=== PATIENT | male | born 1960 | race Caucasian/White ===

== ENCOUNTER 2018-05-07 18:57 | Inpatient (IN) | payer SELFPAY ==
[~2018-05-07] VITALS: Ht 172.7 cm; Wt 83.9 kg
[~2018-05-07 18:57] MED LIST: ATOR40TA PO; BENA20TA11 PO; HYDR12.51 PO; LEVO0.1331 PO; NOVN SUBQ; [UNRECOGNIZED DRUG - CODE] MC
[2018-05-07 19:00] VITALS: BP 176/53
--- NOTE | 2018-05-07 19:00 | NUR ---
PT TAKEN TO BED 9
[2018-05-07] MEDS ORDERED: ASPIRIN 325 MG TAB PO ONE (19:15)
[2018-05-07] MEDS ORDERED: NITROGLYCERIN 0.4 MG TAB SL ONE (19:15)
--- NOTE | 2018-05-07 19:23 | NUR ---
Dr. Cope evaluating patient at bedside.
--- NOTE | 2018-05-07 19:30 | NUR ---
Note undone in EDM - 05/07/18 at 1937 by [email or web address] PT BIB SISTER C/O CHEST PAIN. PT STATES SUDDEN ONSET OF CP SINCE 0600 TODAY. DENIES N/V/D; SKIN IS PINK/WARM/DRY; AAOX4 WITH EVEN AND STEADY GAIT; LUNGS CLEAR BL; HR EVEN AND REGULAR; PT DENIES ANY FEVER, CP, SOB, OR COUGH AT THIS TIME; VSS; PATIENT POSITIONED FOR COMFORT; HOB ELEVATED; BEDRAILS UP X1; BED DOWN. ER MD MADE AWARE OF PT STATUS. PMH: THYROID, DM, HTN RX: SEE LIST
--- NOTE | 2018-05-07 19:30 | NUR ---
PT BIB SISTER C/O CHEST PAIN. PT STATES SUDDEN ONSET OF CP SINCE 0600 TODAY. DENIES N/V/D; SKIN IS PINK/WARM/DRY; AAOX4 WITH EVEN AND STEADY GAIT; LUNGS CLEAR BL; HR EVEN AND REGULAR; PT DENIES ANY FEVER, SOB, OR COUGH AT THIS TIME; VSS; PATIENT POSITIONED FOR COMFORT; HOB ELEVATED; BEDRAILS UP X1; BED DOWN. ER MD MADE AWARE OF PT STATUS. PMH: THYROID, DM, HTN RX: SEE LIST
--- NOTE | 2018-05-07 19:32 | NUR ---
X-RAY AT BEDSIDE.
[2018-05-07 19:54] LABS: ANION GAP 9.1 (8-16); CARBON DIOXIDE 29.9 mmol/L (21-32)
[2018-05-07 19:55] LABS: BASOPHILS % (AUTO) 0.3 % (0.0-2.0); EOSINOPHILS % (AUTO) 0.1 % (0.0-4.0); HEMATOCRIT 43.3 % (36-52); HEMOGLOBIN 14.5 g/dL (12.0-18.0); LYMPHOCYTES # (AUTO) 0.9 K/uL (2.0-11.5); LYMPHOCYTES % (AUTO) 9.5 % (20.5-51.1); MEAN CORPUSCULAR HEMOGLOBIN 32 pg (27-31); MEAN CORPUSCULAR HGB CONC 34 g/dL (33-37); MEAN CORPUSCULAR VOLUME 96.1 fL (80-94); MONOCYTES # (AUTO) 0.6 K/uL (0.8-1.0); NEUTROPHILS # (AUTO) 7.8 K/uL (1.8-7.7); NEUTROPHILS % (AUTO) 84.1 % (42.2-75.2); PLATELET COUNT (AUTO) 117 K/uL (140-450); RED BLOOD CELL COUNT(AUTO) 4.51 MIL/uL (4.20-6.10); RED CELL DISTRIBUTION WIDTH 13.9 % (11.6-13.7); WHITE BLOOD COUNT (AUTO) 9.2 K/uL (4.8-10.8)
[2018-05-07 20:01] LABS: ALBUMIN 3.8 g/dL (3.4-5.0); TOTAL BILIRUBIN 1.2 mg/dL (0.0-1.0)
[2018-05-07] MEDS ORDERED: ASPI-1718 PO (20:14)
[2018-05-07] MEDS ORDERED: METF1000 PO (20:14)
[2018-05-07] MEDS ORDERED: ZOLPIDEM 5 MG TAB PO PRN (20:45)
[2018-05-07] MEDS ORDERED: HYDROcodone/APAP 7.5/325 MG 1 TAB PO PRN (20:45)
[2018-05-07] MEDS ORDERED: ACETAMINOPHEN 325 MG TAB PO PRN (20:45)
[2018-05-07] MEDS ORDERED: DEXTROSE 50% 50 ML SYR IVP PRN (20:45)
[2018-05-07] MEDS ORDERED: ONDANSETRON 4 MG/2 ML VIAL IVP PRN (20:45)
--- NOTE | 2018-05-07 21:20 | NUR ---
RECEIVED REPORT FROM BIAS CUTTERCAN PAREKH FOR CONTINUITY OF CARE. PT A/OX4 ON ROOM AIR, MONGOLIAN SPEAKING. PT AMBULATES WITH STEADY GAIT. SKIN IS INTACT. PT HAS A 22G IV TO LEFT HAND, ASYMPTOMATIC AND INTACT. BP SLIGHTLY ELEVATED AT 164/91 BUT PT RECEIVED NITRO IN ER, WILL REASSESS BP AGAIN IN ONE HOUR, OTHER VITAL SIGNS WITHIN NORMAL LIMITS. PT STABLE, DENIES HAVING ANY PAIN, NO SIGNS OF DISTRESS NOTED AT THIS TIME. PT POSITIONED FOR COMFORT. BED IN LOWEST POSITION, BED ALARM ON. WILL CONTINUE TO MONITOR.
--- NOTE | 2018-05-07 21:20 | NUR ---
Patient will be admitted to care of Dr. Guidry. Admited to Tele via gurney by RN and Erasmo EMT; VSS; AAOx4. Will go to room 119-B. Belongings list completed. Report to Romelia NORTH.
[2018-05-07 21:26] LABS: BARBITURATE, URINE NEG. ng/ml (NEG <=200); BENZODIAZEPINE, URINE NEG. ng/mL (NEG <=200); CANNABINOID, URINE NEG. ng/mL (NEG <=50); COCAINE, URINE NEG. ng/mL (NEG <=300); OPIATE, URINE NEG. ng/mL (NEG <=2000); PHENCYCLIDINE SCREEN,URINE NEG. ng/mL (NEG <=25)
[2018-05-07 21:30] LABS: FREE T4 (FREE THYROXINE) 0.29 ng/dL (0.76-1.46); MAGNESIUM 1.7 mg/dL (1.8-2.4); THYROID STIMULATING HORMONE 67.83 uIU/mL (0.34-3.74)
[2018-05-07 21:41] LABS: PROTHROMBIN TIME 11.2 secs (10.8-13.4)
[2018-05-07] MEDS: NACL 0.9% 1,000 ML IV SCH (22:00)
[2018-05-07] MEDS: BLOOD GLUCOSE MONITORING 1 DEV DEV FS SCH (22:00)
[2018-05-07] MEDS: DOCUSATE SODIUM 100 MG GELCAP PO SCH (22:21)
[2018-05-07] MEDS: INSULIN LISPRO SLIDING SCALE 100 UNITS/ML VIAL SUBQ PRN (22:23)
[2018-05-07 23:00] VITALS: BP 153/86
--- NOTE | 2018-05-07 23:00 | NUR ---
PT STILL DECREASING NOW AT 153/86.
--- NOTE | 2018-05-08 | NUR ---
VITAL SIGNS WITHIN NORMAL LIMITS. PT STABLE, DENIES HAVING ANY PAIN, NO SIGNS OF DISTRESS NOTED AT THIS TIME. PT POSITIONED FOR COMFORT. BED IN LOWEST POSITION, BED ALARM ON. WILL CONTINUE TO MONITOR.
[2018-05-08] MEDS ORDERED: PNEUMOCOCCAL VACCINE 23 MCG/0.5 ML VIAL IMVAC SCH (00:20)
[2018-05-08] MEDS ORDERED: NITROGLYCERIN 0.4 MG TAB SL PRN (01:35)
[2018-05-08] MEDS ORDERED: MAG SULF 2000 MG/WATER PREMIX 50 ML IV SCH ×2 (01:35→05:25)
--- NOTE | 2018-05-08 02:12 | NUR ---
SPOKE TO PT REGARDING CURRENT MEDICATIONS HE TAKES. PT STATES HE DOES NOT TAKE BP MEDICATION REGULARLY BECAUSE HE DOES NOT CHECK HIS BLOOD PRESSURE AND DOES NOT WANT IT TO DROP TOO LOW. RELAYED INFORMATION I OBTAINED FROM PT TO DR MENDEZ. =
[2018-05-08 04:00] VITALS: BP 132/76
[2018-05-08] MEDS: BLOOD GLUCOSE MONITORING 1 DEV DEV FS SCH ×4 (06:40→21:09)
--- NOTE | 2018-05-08 07:09 | NUR ---
ENDORSED PT TO DAY SHIFT CAN SAAVEDRA FOR CONTINUITY OF CARE AT PT BEDSIDE. PT IN STABLE CONDITION.
[2018-05-08 07:13] LABS: BASOPHILS # (AUTO) 0.1 K/uL (0.00-0.22); BASOPHILS % (AUTO) 0.8 % (0.0-2.0); EOSINOPHILS # (AUTO) 0.1 K/uL (0-0.4); EOSINOPHILS % (AUTO) 0.7 % (0.0-4.0); HEMATOCRIT 42.4 % (36-52); HEMOGLOBIN 14.4 g/dL (12.0-18.0); LYMPHOCYTES # (AUTO) 1.8 K/uL (2.0-11.5); LYMPHOCYTES % (AUTO) 23.9 % (20.5-51.1); MEAN CORPUSCULAR HEMOGLOBIN 33 pg (27-31); MEAN CORPUSCULAR HGB CONC 34 g/dL (33-37); MEAN CORPUSCULAR VOLUME 95.9 fL (80-94); MONOCYTES # (AUTO) 0.5 K/uL (0.8-1.0); MONOCYTES % (AUTO) 7.1 % (1.7-9.3); NEUTROPHILS % (AUTO) 67.5 % (42.2-75.2); PLATELET COUNT (AUTO) 111 K/uL (140-450); RED BLOOD CELL COUNT(AUTO) 4.42 MIL/uL (4.20-6.10); RED CELL DISTRIBUTION WIDTH 13.7 % (11.6-13.7); WHITE BLOOD COUNT (AUTO) 7.5 K/uL (4.8-10.8)
--- NOTE | 2018-05-08 07:21 | NUR ---
RECEIVED BEDSIDE REPORT FROM NIGHT SIFT NURSE. PT IS LAYING IN BED RESTING. PT STABLE, DENIES HAVING ANY PAIN, NO SIGNS OF DISTRESS NOTED AT THIS TIME. PT POSITIONED SELF FOR COMFORT. BED IN LOWEST POSITION, CALL LIGHT WITHIN REACH. WILL CONTINUE TO MONITOR.
--- NOTE | 2018-05-08 07:21 | NUR ---
ENDORSED PT TO DAY SHIFT RN HUDSON FOR CONTINUITY OF CARE AT PT BEDSIDE. PT IN STABLE CONDITION.
[2018-05-08 07:22] LABS: ANION GAP 4.6 (8-16); CARBON DIOXIDE 33.2 mmol/L (21-32); POTASSIUM 3.8 mmol/L (3.5-5.1)
[2018-05-08 07:33] LABS: CHOL/HDL RATIO 1.9 (1-4.5); MAGNESIUM 1.8 mg/dL (1.8-2.4); PHOSPHORUS 3.4 mg/dL (2.5-4.9)
[2018-05-08 08:00] VITALS: BP 145/82
[2018-05-08] MEDS: metFORMIN 500 MG TAB PO SCH ×2 (08:12→21:09)
[2018-05-08] MEDS: PANTOPRAZOLE 40 MG INJ VIAL IVP SCH (08:12)
[2018-05-08] MEDS: METOPROLOL 25 MG TAB PO SCH ×2 (08:14→21:00)
[2018-05-08] MEDS: DOCUSATE SODIUM 100 MG GELCAP PO SCH ×2 (08:14→21:09)
[2018-05-08] MEDS: ASPIRIN 81 MG TAB.CHEW PO SCH (08:15)
[2018-05-08] MEDS: LEVOTHYROXINE 0.112 MG, LEVOTHYROXINE 0.025 MG PO SCH ×2 (08:15)
[2018-05-08] MEDS: INSULIN NPH HUMAN ISOPHANE 100 UNIT/ML VIAL SUBQ SCH ×2 (08:24→17:43)
--- NOTE | 2018-05-08 08:27 | NUR ---
ADMINISTERED MORNING MEDS TO PT. PT TOLERATED WELL. NO COMPLAINTS OF PAIN OR DISTRESS AT THIS TIME. WILL CONTINUE TO ROUND FREQUENTLY.
--- NOTE | 2018-05-08 08:28 | NUR ---
PATIENT HAS BEEN SCREENED AND CATEGORIZED MODERATE NUTRITION RISK. PATIENT WILL BE SEEN WITHIN 3-5 DAYS OF ADMISSION. 05/10/18[address]
[2018-05-08] MEDS ORDERED: BENAZEPRIL 20 MG TAB PO SCH ×2 (09:00→18:00)
[2018-05-08] MEDS ORDERED: [UNRECOGNIZED DRUG - OTHER] SUBQ SCH (09:00)
[2018-05-08] MEDS: HYDROCHLOROTHIAZIDE 25 MG TAB PO SCH (09:00)
[2018-05-08] MEDS ORDERED: HYDROCHLOROTHIAZIDE PO SCH (09:00)
[2018-05-08] MEDS ORDERED: NON-FORMULARY ITEM (Levothyroxine Sodium* (Synthroid*) 1 TAB) PO SCH (09:00)
--- NOTE | 2018-05-08 10:04 | NUR ---
PT NOTIFIED OF NPO STATUS FOR TESTING LATER TODAY. PT VERBALIZED UNDERSTANDING.
--- NOTE | 2018-05-08 10:24 | NUR ---
PT SLEEPING IN BED. ALL NEEDS MET AT THIS TIME. WILL CONTINUE TO MONITOR PT CLOSELY. BED IN LOW POSITION, CALL LIGHT WITHIN REACH.
[2018-05-08] MEDS: NACL 0.9% 1,000 ML IV SCH (11:02)
[2018-05-08 12:00] VITALS: BP 143/87
--- NOTE | 2018-05-08 13:08 | NUR ---
PT BLOOD SUGAR IS 215. WAS NOTIFIED SINCE PT IS NPO FOR TEST LATER TODAY. PER DR. RODRIGUEZ, SHE SAID TO NOT GIVE THE PT ANY COVERAGE. WILL RECHECK BS FOR DINNER AND GIVE INSULIN COVERAGE NEEDED.
[2018-05-08] MEDS ORDERED: FAMOTIDINE 20 MG TAB PO SCH (13:31)
[2018-05-08 16:00] VITALS: BP 163/89
[2018-05-08 17:56] LABS: ALBUMIN 3.3 g/dL (3.4-5.0); BILIRUBIN,DIRECT 0.5 mg/dL (0.0-0.3); TOTAL BILIRUBIN 1.1 mg/dL (0.0-1.0)
--- NOTE | 2018-05-08 19:40 | NUR ---
ENDORSED PT TO EMBLEM CUTTER FOR CONTINUITY OF CARE. PT IN STABLE CONDITION AT THIS TIME.
--- NOTE | 2018-05-08 19:41 | NUR ---
RECEIVED REPORT FROM CAN SAAVEDRA FOR CONTINUITY OF CARE. PT A/OX4 ON ROOM AIR, MACEDONIAN SPEAKING. PT AMBULATES WITH STEADY GAIT. SKIN IS INTACT. PT HAS A 22G IV TO LEFT HAND, ASYMPTOMATIC AND INTACT. SBP SLIGHTLY ELEVATED AT 146 AND HEART RATE DECREASED AT 55, OTHER VITAL SIGNS WITHIN NORMAL LIMITS. PT STABLE, DENIES HAVING ANY PAIN, NO SIGNS OF DISTRESS NOTED AT THIS TIME. PT POSITIONED FOR COMFORT. BED IN LOWEST POSITION, BED ALARM ON. WILL CONTINUE TO MONITOR.
[2018-05-08 20:00] VITALS: BP 146/83
--- NOTE | 2018-05-08 20:50 | NUR ---
DR CASEY TALKING WITH PT AT BEDSIDE.
[2018-05-08] MEDS: INSULIN LISPRO SLIDING SCALE 100 UNITS/ML VIAL SUBQ PRN (21:14)
--- NOTE | 2018-05-08 21:15 | NUR ---
ADMINISTERED SCHEDULED MEDICATIONS, PT TOLERATED WELL. HELD LOPRESSOR DUE TO SLIGHTLY LOW PULSE (55), MADE DR TRAVIS AWARE. BED IN LOWEST POSITION, CALL LIGHT WITHIN REACH. WILL CONTINUE TO MONITOR.
--- NOTE | 2018-05-08 23:03 | NUR ---
ASKED PT FOR URINE SAMPLE AND HE SAID HE HAD JUST GONE. EXPLAINED TO HIM THAT WE NEEDED TO SEND HIS URINE TO THE LAB TO FOLLOW THROUGH ON THE TESTS/EXAMS HIS DOCTOR ORDERED, IN [place]. ASKED HIM TO CALL ME NEXT TIME HE VOIDED SO THAT I COULD COLLECT SOME FROM THE URINAL.
[2018-05-09] VITALS: BP 126/76
--- NOTE | 2018-05-09 01:15 | NUR ---
CHECKED ON PT AND PT HAD VOIDED AGAIN. I REPEATED TO HIM THAT WE NEED A URINE SAMPLE THAT HAS NOT BEEN SITTING THERE FOR A WHILE AND TO LET ME KNOW NEXT TIME HE NEEDS TO VOID. PT VERBALIZED UNDERSTANDING AGAIN.
--- NOTE | 2018-05-09 02:15 | NUR ---
PT RESTING, STABLE. NO SIGNS OF DISTRESS NOTED AT THIS TIME. PT POSITIONED FOR COMFORT. BED IN LOWEST POSITION, BED ALARM ON. WILL CONTINUE TO MONITOR.
[2018-05-09 04:00] VITALS: BP 135/81
[2018-05-09] MEDS: LEVOTHYROXINE 0.112 MG, LEVOTHYROXINE 0.025 MG PO SCH ×2 (05:58)
[2018-05-09] MEDS: INSULIN NPH HUMAN ISOPHANE 100 UNIT/ML VIAL SUBQ SCH (05:59)
[2018-05-09] MEDS: BLOOD GLUCOSE MONITORING 1 DEV DEV FS SCH ×2 (05:59→11:58)
--- NOTE | 2018-05-09 06:00 | NUR ---
ADMINISTERED SCHEDULED MEDICATIONS, PT TOLERATED WELL. PT BLOOD SUGAR RESULTED IN 25, CHECKED AGAIN AND IT WAS 32. PT ASYMPTOMATIC, GAVE ORANGE JUICE AND APPLE JUICE AND HELD NPH INSULIN.
[2018-05-09 06:22] LABS: BASOPHILS # (AUTO) 0.1 K/uL (0.00-0.22); BASOPHILS % (AUTO) 0.8 % (0.0-2.0); EOSINOPHILS # (AUTO) 0.1 K/uL (0-0.4); EOSINOPHILS % (AUTO) 1.2 % (0.0-4.0); HEMATOCRIT 41.5 % (36-52); HEMOGLOBIN 13.9 g/dL (12.0-18.0); LYMPHOCYTES # (AUTO) 1.9 K/uL (2.0-11.5); LYMPHOCYTES % (AUTO) 26.3 % (20.5-51.1); MEAN CORPUSCULAR HEMOGLOBIN 32 pg (27-31); MEAN CORPUSCULAR HGB CONC 34 g/dL (33-37); MEAN CORPUSCULAR VOLUME 96.7 fL (80-94); MONOCYTES # (AUTO) 0.6 K/uL (0.8-1.0); NEUTROPHILS # (AUTO) 4.7 K/uL (1.8-7.7); NEUTROPHILS % (AUTO) 63.7 % (42.2-75.2); PLATELET COUNT (AUTO) 112 K/uL (140-450); RED BLOOD CELL COUNT(AUTO) 4.29 MIL/uL (4.20-6.10); RED CELL DISTRIBUTION WIDTH 14.1 % (11.6-13.7); WHITE BLOOD COUNT (AUTO) 7.4 K/uL (4.8-10.8)
--- NOTE | 2018-05-09 06:22 | NUR ---
BLOOD SUGAR STILL 38, ADMINISTERED ABBOJECT DEXTROSE INJECTION, PT TOLERATED WELL. WILL REASSESS AGAIN
[2018-05-09 06:24] LABS: ANION GAP 9.2 (8-16); CREATININE 0.9 mg/dL (0.7-1.3); POTASSIUM 3.2 mmol/L (3.5-5.1)
--- NOTE | 2018-05-09 06:29 | NUR ---
PT BLOOD SUGAR NOW 168. NO INSULIN GIVEN.
[2018-05-09 06:43] LABS: MAGNESIUM 1.9 mg/dL (1.8-2.4); PHOSPHORUS 3.3 mg/dL (2.5-4.9)
[2018-05-09 06:44] LABS: ALBUMIN 3.3 g/dL (3.4-5.0); BILIRUBIN,DIRECT 0.4 mg/dL (0.0-0.3)
--- NOTE | 2018-05-09 07:15 | NUR ---
ENDORSED PT TO DAY SHIFT CAN KEITH FOR CONTINUITY OF CARE. PT IN STABLE CONDITION.
--- NOTE | 2018-05-09 07:17 | NUR ---
RECEIVED BEDSIDE REPORT FROM PRODUCT SAFETY AND STANDARDS ENGINEER NURSE. PT IS AOX4. DENIES PAIN AND NO SIGNS OF DISTRESS NOTED. RA. RESPIRATION IS EVEN AND UNLABORED. IV ON L HAND 22G, PATENT AND ASYMPTOMATIC, INFUSING PER MD ORDER. IV SITE IS CLEAN AND DRY. SKIN INTACT, DRY AND CLEAN. ABLE TO AMBULATE WITH STEADY GAIT. URANAL IS ON BEDSIDE. DISCUSSED PLAN OF CARE WITH PATIENT, AND PATIENT VERBALIZED UNDERSTANDING. BED IS IN LOW POSITION, CALL LIGHT WITHIN REACH.
[2018-05-09 08:00] VITALS: BP 133/79
[2018-05-09] MEDS ORDERED: BENAZEPRIL 20 MG TAB PO SCH (09:00)
[2018-05-09] MEDS ORDERED: FAMOTIDINE 20 MG TAB PO SCH (09:00)
[2018-05-09 09:31] LABS: APPEARANCE,URINE CLEAR (CLEAR); BILIRUBIN,URINE NEGATIVE (NEGATIVE); BLOOD, URINE NEGATIVE (NEGATIVE); COLOR,URINE YELLOW (YELLOW); LEUKOCYTE ESTERASE ,URINE NEGATIVE (NEGATIVE); NITRITE, URINE NEGATIVE (NEGATIVE); UGLUCOSE TRACE (NEGATIVE)
[2018-05-09 09:32] LABS: RBC,URINE 0-5 (RARE) /HPF (0-5); WBC,URINE 0-5 (RARE) /HPF (0-5)
[2018-05-09] MEDS: PANTOPRAZOLE 40 MG INJ VIAL IVP SCH (09:36)
[2018-05-09] MEDS: HYDROCHLOROTHIAZIDE 25 MG TAB PO SCH (09:37)
[2018-05-09] MEDS: METOPROLOL 25 MG TAB PO SCH (09:37)
[2018-05-09] MEDS: DOCUSATE SODIUM 100 MG GELCAP PO SCH (09:38)
[2018-05-09] MEDS: metFORMIN 500 MG TAB PO SCH (09:39)
[2018-05-09] MEDS: ASPIRIN 81 MG TAB.CHEW PO SCH (09:40)
--- NOTE | 2018-05-09 09:48 | NUR ---
ADMINISTERED MEDS PER MD ORDER. HELD HEPARIN DUE TO PLATELET IS LOW 112L. PT TOLERATED WELL. NO SIGNS OF DISTRESS NOTED. FAMILY IS AT BEDSIDE.
[2018-05-09] MEDS: NACL 0.9% 1,000 ML IV SCH (11:02)
--- NOTE | 2018-05-09 11:45 | NUR ---
PT IS RESTING ON BED. DENIES PAIN. NO SIGN OF DISTRESS NOTED.
[2018-05-09] MEDS: INSULIN LISPRO SLIDING SCALE 100 UNITS/ML VIAL SUBQ PRN (11:56)
[2018-05-09 12:00] VITALS: BP 151/90
--- NOTE | 2018-05-09 12:25 | NUR ---
PT'S DOMINGA CALLED AND ASKED WHEN PT WILL BE DISCHARGED. INFORMED PT'S THAT PT WILL NEED TO TAKE POTASSIUM PER MD ORDER AND CHECK LAB AFTERWARD TO ENSURE THE POTASSIUM IS WITHIN NORMAL LIMIT.
[2018-05-09] MEDS ORDERED: POTASSIUM CHLORIDE 10 MEQ TABER PO SCH (14:00)
--- NOTE | 2018-05-09 14:10 | NUR ---
ADMINISTERED MED PER MD ORDER. EXPLAINED TO PT THAT HIS POTASSIUM LEVEL IS LOW.
[2018-05-09] MEDS ORDERED: BENA20TA88 PO (14:42)
[2018-05-09] MEDS ORDERED: FAMO20TA13 PO (14:42)
--- NOTE | 2018-05-09 15:20 | NUR ---
PT HAS SIGNED THE DISCHARGE DOCUMENTS. WAITING TO FOR FAMILY TO ARRIVAL.
--- NOTE | 2018-05-09 15:30 | NUR ---
PT HAS CHANGED INTO HIS OWN CLOTHES AND WAITING FOR FAMILY ARRIVAL.
--- NOTE | 2018-05-09 15:45 | NUR ---
DISCHARGE INSTRUCTION AND EDUCATION MATERIALS PROVIDED TO PATIENT IN PREFERRED LANGUAGE IVORIAN. EDUCATED PATIENT ON DISEASE MANAGEMENT EDUCATION, SIGN AND SYMPTOMS, MEDICATIONS REGIMENS, SIDE EFFECTS, FOLLOW UP WITH MD, AND DIET REGIMENS. PRESCRIPTIONS GIVEN TO PATIENT. ANSWERED ALL PT AND FAMILY QUESTIONS. D/C IV, IV CANNULA INTACT, NO BLEEDING AT IV INSERTED SITE. REMOVED ALL ARMBANDS. PT BROUGHT ALL HIS BELONGINGS. ESCORTED PT AND FAMILY TO THE LOBBY. PT IS IN STABLE CONDITION. PT IS DISCHARGED AT THIS TIME.
== END 2018-05-09 15:45 | disposition home or self-care (01) | DRG 392 ==
LOC: MED 18:57 → MTU 20:55
PROVIDERS: ADMIT General Practice; ATTEND General Practice
DX: K21.9 Gastro-esophageal reflux disease without esophagitis (principal); E87.1 Hypo-osmolality and hyponatremia; E44.1 Mild protein-calorie malnutrition; E11.9 Type 2 diabetes mellitus without complications; I10 Essential (primary) hypertension; E03.9 Hypothyroidism, unspecified; E78.5 Hyperlipidemia, unspecified; F17.210 Nicotine dependence, cigarettes, uncomplicated; E83.42 Hypomagnesemia; K76.0 Fatty (change of) liver, not elsewhere classified; E87.6 Hypokalemia; N20.0 Calculus of kidney; Z79.82 Long term (current) use of aspirin; Z79.84 Long term (current) use of oral hypoglycemic drugs; Z79.4 Long term (current) use of insulin; Z79.899 Other long term (current) drug therapy; Z82.49 Family history of ischemic heart disease and other diseases of the circulatory system; Z83.3 Family history of diabetes mellitus; Z68.28 Body mass index [BMI] 28.0-28.9, adult
CPT/HCPCS: 36415; 71045; 76700; 80048; 80053; 80076; 80305; 81001; 82150; 82550; 82553; 82948; 83036; 83690; 83735; 83880; 84100; 84439; 84443; 84484; 85025; 85610; 85730; 87081; 93005; 99285; C9113; J1644; J1815; J3475; J7030; Q0092

== ENCOUNTER 2020-03-19 17:24 | Inpatient (IN) | payer OTHER, SELFPAY ==
[~2020-03-19] VITALS: Ht 170.2 cm; Wt 62.6 kg
[~2020-03-19 17:24] MED LIST changes: +ASPI-1822 PO; -BENA20TA11 PO; +BENA20TA88 PO; +FAMO20TA13 PO; +METF1000 PO
[2020-03-19 17:46] VITALS: BP 116/70
--- NOTE | 2020-03-19 19:02 | NUR ---
Patient being evaluated by physician at TRIAGE ROOM.
[2020-03-19 20:21] LABS: BASOPHILS # (AUTO) 0.2 K/uL (0.00-0.22); BASOPHILS % (AUTO) 1.7 % (0.0-2.0); HEMATOCRIT 45.9 % (36-52); HEMOGLOBIN 15.2 g/dL (12.0-18.0); LYMPHOCYTES # (AUTO) 0.7 K/uL (2.0-11.5); LYMPHOCYTES % (AUTO) 6.5 % (20.5-51.1); MEAN CORPUSCULAR HEMOGLOBIN 35 pg (27-31); MEAN CORPUSCULAR HGB CONC 33 g/dL (33-37); MEAN CORPUSCULAR VOLUME 104.7 fL (80-94); MONOCYTES # (AUTO) 0.2 K/uL (0.8-1.0); MONOCYTES % (AUTO) 2.1 % (1.7-9.3); NEUTROPHILS % (AUTO) 89.7 % (42.2-75.2); PLATELET COUNT (AUTO) 266 K/uL (140-450); RED BLOOD CELL COUNT(AUTO) 4.39 MIL/uL (4.20-6.10); RED CELL DISTRIBUTION WIDTH 14.7 % (11.6-13.7); WHITE BLOOD COUNT (AUTO) 11.1 K/uL (4.8-10.8)
[2020-03-19 20:45] LABS: ALBUMIN 4.8 g/dL (3.4-5.0); ANION GAP 29.9 (8-16); CARBON DIOXIDE 15.1 mmol/L (21-32); CREATININE 1.6 mg/dL (0.6-1.3); TOTAL BILIRUBIN 1.1 mg/dL (0.0-1.0)
[2020-03-19] MEDS ORDERED: LACTATED RINGERS 1,000 ML IV ONE ×2 (21:55→22:25)
[2020-03-19] MEDS ORDERED: DEXTROSE 50% 50 ML SYR IVP PRN (21:55)
[2020-03-19] MEDS: BLOOD GLUCOSE MONITORING 1 DEV DEV FS SCH ×3 (21:55→23:55)
--- NOTE | 2020-03-19 22:18 | NUR ---
VENOUS BLOOD GAS COLLECTED AND GIVEN TO RT.
--- NOTE | 2020-03-19 22:28 | NUR ---
PT AMBULATED TO [facility]
[2020-03-19] MEDS ORDERED: INSULIN REGULAR, HUMAN 100 UNIT in NACL 0.9% 100 ML IV ONE ×2 (22:30)
--- NOTE | 2020-03-19 22:36 | NUR ---
PT AMBULATED TO RESTROOM, STEADY GAIT
[2020-03-19] MEDS ORDERED: ONDANSETRON 4 MG/2 ML VIAL IVP SCH (22:45)
--- NOTE | 2020-03-19 23:00 | NUR ---
INSULIN DRIP STARTED AT 6 UNITS/HR
--- NOTE | 2020-03-19 23:00 | NUR ---
BRIAN SWAB COLLECTED AND HANDED TO MOVING VAN DRIVER
[2020-03-19] MEDS ORDERED: CALCIUM GLUCONATE 10% 1000 MG/10 ML VIAL IVP ONE (23:05)
[2020-03-19 23:28] LABS: APPEARANCE,URINE CLEAR (CLEAR); BILIRUBIN,URINE 2+ (NEGATIVE); BLOOD, URINE NEGATIVE (NEGATIVE); COLOR,URINE YELLOW (YELLOW); LEUKOCYTE ESTERASE ,URINE NEGATIVE (NEGATIVE); NITRITE, URINE NEGATIVE (NEGATIVE); PH,URINE 5.5 (5.0-9.0); UGLUCOSE 3+ (NEGATIVE)
[2020-03-19] MEDS: LACTATED RINGERS 1,000 ML IV SCH (23:31)
[2020-03-19] MEDS ORDERED: SODIUM BICARBONATE 8.4% PFS 50 MEQ/50 ML SYR IVP SCH (23:40)
--- NOTE | 2020-03-19 23:52 | NUR ---
PT TAKEN TO CT VIA [facility]
--- NOTE | 2020-03-20 00:10 | NUR ---
PT RETURNED FROM CT VIA [facility]
[2020-03-20] MEDS ORDERED: CALCIUM GLUCONATE 10% 1,000 MG in NACL 0.9% 100 ML IV SCH (00:25)
[2020-03-20] MEDS: LACTATED RINGERS 1,000 ML IV SCH ×2 (00:32→00:33)
[2020-03-20] MEDS ORDERED: CALCIUM GLUCONATE 10% 1000 MG/10 ML VIAL ONE (00:37)
[2020-03-20] MEDS: BLOOD GLUCOSE MONITORING 1 DEV DEV FS SCH ×18 (00:55→20:31)
--- NOTE | 2020-03-20 01:02 | NUR ---
LAB AT BEDSIDE
[2020-03-20] MEDS ORDERED: NACL 0.9% 1,000 ML IV SCH (01:40)
--- NOTE | 2020-03-20 03:36 | NUR ---
PT RESTING IN BED, EYES CLOSED, RESPRIATIONS EVEN AND UNLABORED. CHEST RISE IS SYMMETRICAL. WILL CONTINUE TO MONITOR.
--- NOTE | 2020-03-20 04:23 | NUR ---
MOVED TO ER BED 11
[2020-03-20] MEDS ORDERED: MULTIVITAMIN-12 10 ML, THIAMINE 100 MG, MAGNESIUM SULFATE 50% 2,000 MG, FOLIC ACID 1 MG... IV SCH ×5 (05:00)
[2020-03-20] MEDS ORDERED: DEXTROSE 50% 50 ML SYR IVP PRN ×2 (05:05→10:40)
[2020-03-20] MEDS ORDERED: INSULIN REGULAR, HUMAN 100 UNIT in NACL 0.9% 100 ML IV SCH ×4 (05:05→10:40)
[2020-03-20] MEDS ORDERED: BLOOD GLUCOSE MONITORING 1 DEV DEV FS SCH ×2 (05:05→12:00)
[2020-03-20] MEDS ORDERED: THIAMINE 200 MG/2 ML VIAL ONE (05:12)
[2020-03-20] MEDS ORDERED: FOLIC ACID 5 MG/ML SYR ONE (05:12)
[2020-03-20] MEDS ORDERED: MULTIVITAMIN-12 10 ML VIAL IV ONE (05:13)
[2020-03-20] MEDS ORDERED: MAG SULF 2000 MG/WATER PREMIX 50 ML IV ONE (05:14)
--- NOTE | 2020-03-20 05:55 | NUR ---
BLOOD SUGAR 404, ON INSULIN DRIP, WILL CONTINUE TO MONITOR
[2020-03-20] MEDS ORDERED: ONDANSETRON 4 MG/2 ML VIAL IVP PRN (07:05)
[2020-03-20] MEDS ORDERED: LORazepam 2 MG/ML VIAL IM/IVP PRN (07:05)
[2020-03-20] MEDS ORDERED: ZOLPIDEM 5 MG TAB PO PRN (07:05)
[2020-03-20] MEDS ORDERED: HYDROcodone/APAP 5/325 MG 1 TAB TAB PO PRN (07:05)
[2020-03-20] MEDS ORDERED: DOCUSATE SODIUM 100 MG GELCAP PO PRN (07:05)
[2020-03-20] MEDS ORDERED: ACETAMINOPHEN 325 MG TAB PO PRN (07:05)
[2020-03-20] MEDS ORDERED: MORPHINE SULFATE 2 MG/ML SYR IVP PRN (07:05)
--- NOTE | 2020-03-20 07:12 | NUR ---
REPORT GIVEN TO SILVESTRE NORTH FOR CONTINUITY OF CARE
--- NOTE | 2020-03-20 07:49 | NUR ---
PATIENT HAS BEEN SCREENED AND CATEGORIZED HIGH NUTRITION RISK. PATIENT WILL BE SEEN WITHIN 1-2 DAYS OF ADMISSION. 03/20/20 - 03/21/20 BR[address] ALVAREZ MBA, RD
--- NOTE | 2020-03-20 08:00 | NUR ---
BLOOD SUGAR 368, PT ON INSULIN DRIP, WILL CONTINUE TO MONITOR.
--- NOTE | 2020-03-20 08:21 | NUR ---
Patient will be admitted to care of DR. GONZALES. Admited to ICU. Will go to room 132. Belongings list completed. Report to CAN ARGUETA.
[2020-03-20 08:30] VITALS: BP 142/96
--- NOTE | 2020-03-20 09:31 | NUR ---
SPOKE TO DR GOMEZ REGARDING PT BLOOD SUGAR 398, AND CURRENTLY RUNNING 6 UNITS/HR INSULIN FROM ER, PER DR TO INCREASE RATE TO 8 UNITS/HR, AND MONITOR BLOOD SUGAR.WILL CONTINUE TO MONITOR.
[2020-03-20 10:00] VITALS: BP 134/74
[2020-03-20] MEDS: DEXT 5% / NACL 0.45% 1,000 ML IV SCH ×2 (10:40→16:20)
[2020-03-20] MEDS ORDERED: INSULIN LISPRO SLIDING SCALE 100 UNITS/ML VIAL SUBQ PRN (10:40)
--- NOTE | 2020-03-20 11:14 | NUR ---
PT BLOOD SUGAR UNABLE TO BE READ BY GLUCOCHECK MACHINE, NOTIFIED DR. GOMEZ, PER DR TO GIVE PT IVP 10 UNITS REGULAR INSULIN, WILL PUT IN ORDERS AND CONTINUE WITH ORDERS.
[2020-03-20] MEDS ORDERED: INSULIN REGULAR, HUMAN 100 UNIT/ML VIAL IVP ONE (11:15)
[2020-03-20] MEDS: NACL 0.9% 1,000 ML IV SCH ×2 (11:20→15:40)
[2020-03-20 11:33] LABS: BASOPHILS % (AUTO) 0.3 % (0.0-2.0); EOSINOPHILS % (AUTO) 0.1 % (0.0-4.0); HEMATOCRIT 36.9 % (36-52); HEMOGLOBIN 12.6 g/dL (12.0-18.0); LYMPHOCYTES # (AUTO) 1.3 K/uL (2.0-11.5); LYMPHOCYTES % (AUTO) 13.5 % (20.5-51.1); MEAN CORPUSCULAR HEMOGLOBIN 35 pg (27-31); MEAN CORPUSCULAR HGB CONC 34 g/dL (33-37); MEAN CORPUSCULAR VOLUME 101.9 fL (80-94); MONOCYTES # (AUTO) 0.7 K/uL (0.8-1.0); MONOCYTES % (AUTO) 6.7 % (1.7-9.3); NEUTROPHILS # (AUTO) 7.9 K/uL (1.8-7.7); NEUTROPHILS % (AUTO) 79.4 % (42.2-75.2); PLATELET COUNT (AUTO) 198 K/uL (140-450); RED BLOOD CELL COUNT(AUTO) 3.62 MIL/uL (4.20-6.10); RED CELL DISTRIBUTION WIDTH 14.2 % (11.6-13.7)
[2020-03-20 12:00] VITALS: BP 131/75
--- NOTE | 2020-03-20 12:06 | NUR ---
DIGITAL COMPUTER SYSTEMS ANALYST NOTE: Patient's Orientation Unable To Assess Information Provided By BRENDA MULLIGAN - SISTER Comments SW WAS UNABLE TO MEET PATIENT. SW COMPLETED ASSESSMENT WITH PATIENT'S SISTER. Building Services Supervisor, Realtionship and Phone Number BRENDA FUNG [phone] [facility] Power of Overhead Cleaner No Does Patient Have a POLST No Identifying Problems No Social Work Triggers Is A Social Work Consult Needed No Mandate Report Filed No Explanation Of Identifying Problems PATIENT IS A 59-YEAR-OLD MALE ADMITTED FOR DKA. PATIENT HAS PMHX OF DIABETES, HYPERTENSION, AND HYPOTHYROIDISM. Admitted From Home Pre-Admission Level Of Functioning Status Independent/Ambulatory Prior Resources/Services Used In Last 12 Months No Prior Resources Used Prior DME No Prior DME Used Living Situation Lives With Family House Home Support No Caregiver Issues Financial Issues No Known Financial Issue Factors/Needs No D/C Needs Identified Pt/Rep Participated In Discharge Plan Yes Patient/Family Agress With Discharge Plan Yes Discharge Plan Comments TENTATIVE DISCHARGE PLAN IS FOR PATIENT TO RETURN HOME. DC Plan Status Initiated
[2020-03-20 12:12] LABS: ALBUMIN 3.9 g/dL (3.4-5.0); ANION GAP 10.6 (8-16); CARBON DIOXIDE 28.5 mmol/L (21-32); CREATININE 1.3 mg/dL (0.6-1.3); POTASSIUM 4.1 mmol/L (3.5-5.1)
[2020-03-20 14:00] VITALS: BP 134/72
[2020-03-20] MEDS ORDERED: GLIM1TAB23 PO (14:13)
[2020-03-20 14:18] LABS: FREE T4 (FREE THYROXINE) 1.97 ng/dL (0.76-1.46); MAGNESIUM 2.8 mg/dL (1.8-2.4); THYROID STIMULATING HORMONE 0.4 uIU/mL (0.34-3.74)
[2020-03-20 14:51] LABS: CHOL/HDL RATIO 2.6 (1-4.5)
[2020-03-20 16:43] LABS: ANION GAP 10.6 (8-16); CREATININE 0.6 mg/dL (0.6-1.3)
[2020-03-20 16:45] LABS: POTASSIUM 2.6 mmol/L (3.5-5.1)
--- NOTE | 2020-03-20 16:53 | NUR ---
CALLED DR. YANG PISANO PT POTASSIUM 2.7, PER DR TO GIVE 40MEQ PRN IV POTASSIUM AND TO ORDER PRN IV POTASSIUM TO MAINTAIN PT POTASSIUM LEVEL, WILL PUT IN ORDER AND CONTINUE WITH ORDERS.
--- NOTE | 2020-03-20 16:58 | NUR ---
SPOKE TO DR GOMEZ REGARDING PT ANION GAP HAS BEEN CLOSED X 2, BELOW 12 @ 1200 10.6 AND @ 1600 10.6, PER DR CAMARGO TO DC INSULIN DRIP, TO START PT ON ACHS GLUCOCHEKS AND SLIDING SCALE. WILL PUT IN ORDERS AND CONTINUE WITH ORDERS.
[2020-03-20 18:00] VITALS: BP 138/71
[2020-03-20] MEDS: KCL 20 MEQ/WATER INJ PREMIX 200 ML IV PRN ×2 (18:49→18:57)
--- NOTE | 2020-03-20 19:20 | NUR ---
ENDORSED PT TO MANAGER PROGRAMMING NURSE FOR CONTINUOUS OF CARE.
--- NOTE | 2020-03-20 19:30 | NUR ---
RECEIVED TRANSFER OF CARE AND REPORT FROM DAYSHIFT NURSE, PATIENT ALERT AND ORIENTED X4, TRACKING AND TALKING WHEN WALKING INTO THE ROOM. HOB 30 DEGREES, IN A POSITION OF COMFORT. PATIENT STATED FEELING CONTENT AND NO COMPLAINTS OF PAIN. PATIENT ON CONTINUOUS TELE MONITOR. DRIPS RUNNING INCLUDE POTASSIUM 20 MEQ AND NS. PATIENT CALM AND RESTING. FREQUENT MONITORING AND CHECKS.
[2020-03-20 20:00] VITALS: BP 148/76
[2020-03-20 20:48] LABS: ANION GAP 10.7 (8-16); CARBON DIOXIDE 24.7 mmol/L (21-32); POTASSIUM 4.4 mmol/L (3.5-5.1)
--- NOTE | 2020-03-20 22:20 | NUR ---
REPORT AND PATIENT CARE TRANSFERRED TO NURSEOFE.
--- NOTE | 2020-03-20 23:00 | NUR ---
RECEIVED REPORT OF PT IN STABLE CONDITION.RESP.UNLABORED.LUNGS CLEAR.IVF OF NS INFUSING WELL.TELE IS ON AND SHOWING SR.CALL LIGHT WITHIN REACH.WILL CONT.MONITORING.
[2020-03-20 23:51] LABS: CARBON DIOXIDE 24.9 mmol/L (21-32); CREATININE 0.7 mg/dL (0.6-1.3)
[2020-03-21] VITALS: BP 138/74
[2020-03-21 00:09] LABS: ANION GAP 8.6 (8-16); POTASSIUM 17.5 mmol/L (3.5-5.1)
[2020-03-21] MEDS: NACL 0.9% 1,000 ML IV SCH ×3 (00:30→20:22)
--- NOTE | 2020-03-21 01:43 | NUR ---
PT'S K=17.5.SENT MESSAGE FOR MD.AND ALSO ORDERED ANOTHER BMP STAT ORDER.MD RESPOND AND ORDERED TO REPEAT BMP STAT.I ALREADY DID IT AND WAITING FOR LAB TO COME AND DRAW BLOOD.
[2020-03-21 02:30] LABS: CARBON DIOXIDE 23.8 mmol/L (21-32); CREATININE 0.9 mg/dL (0.6-1.3); POTASSIUM 3.8 mmol/L (3.5-5.1)
--- NOTE | 2020-03-21 02:38 | NUR ---
BMP STAT DONE.K=3.8. INFORMED MD MCNAMARA TEXT.
[2020-03-21 04:00] VITALS: BP 147/78
[2020-03-21] MEDS: BLOOD GLUCOSE MONITORING 1 DEV DEV FS SCH ×4 (04:35→21:00)
--- NOTE | 2020-03-21 04:57 | NUR ---
BS=55.APPLE JUICE AND SUGAR GIVEN WILL RECHECK LATER.HR IS SB.NO IV LINE TRIED 1 TIME WAS NOT SUCCESSFUL .HE REFUSED TO TRY AGAIN.
--- NOTE | 2020-03-21 07:15 | NUR ---
REC'D REPORT FROM NIGHT NURSE ,PT SLEEPING, RA. PER POULTRY HATCHERY MANAGER NURSE DURING HER SHIFT PT DOES NOT HAVE IV ACCESS, PT REFUSED FOR IV ACCESS TO BE PLACED AFTER PREVIOUS LINE WAS REMOVED. PT STABLE
--- NOTE | 2020-03-21 07:16 | NUR ---
AT 0430 BS=55.GAVE HIM APPLE JUICE AND SUGAR.[id number].NO DISTRESS NOTED AT PRESENT TIME.
[2020-03-21 08:00] VITALS: BP 130/65
--- NOTE | 2020-03-21 10:11 | NUR ---
SPOKE TO PT ABOUT PLACING IV ACCESS, REFUSED. INFORMED ABOUT THE IMPORTANCE OF HAVE IV LINE ESTABLISHED FOR EMERGENT SITUATIONS AND NEED FOR QUICK MEDICATION ADMINISTRATION AND FOR ANY IV MEDICATIONS DR. WILL PRESCRIBE IF NEED BE. STATED HE DID NOT WANT IV LINE DONE.
[2020-03-21 12:00] VITALS: BP 152/80
[2020-03-21] MEDS: INSULIN LISPRO SLIDING SCALE 100 UNITS/ML VIAL SUBQ PRN ×3 (14:04→22:56)
--- NOTE | 2020-03-21 14:08 | NUR ---
ADMINISTERED 2UNITS. HUMALOG PER SLIDING SCALE .PT TOLERATED PROCEDURE WELL
[2020-03-21 14:48] LABS: MAGNESIUM 2.3 mg/dL (1.8-2.4); PHOSPHORUS 3.4 mg/dL (2.5-4.9)
[2020-03-21 15:08] LABS: ANION GAP 13.4 (8-16); CARBON DIOXIDE 24.1 mmol/L (21-32); CREATININE 0.8 mg/dL (0.6-1.3); POTASSIUM 3.5 mmol/L (3.5-5.1)
[2020-03-21 16:00] VITALS: BP 148/78
[2020-03-21 16:26] LABS: CREATININE 0.8 mg/dL (0.6-1.3)
--- NOTE | 2020-03-21 19:30 | NUR ---
RECEIVED REPORT AT BEDSIDE FORM MARY NORTH DAY SHIFT NURSE FOR CONTINUITY OF CARE, PT IN STABLE CONDITION.
--- NOTE | 2020-03-21 19:55 | NUR ---
ENDORSED PT TO BUFFER NICKEL NURSE PT STABLE
[2020-03-21 20:00] VITALS: BP 130/79
--- NOTE | 2020-03-21 20:00 | NUR ---
PT IS AOX4, MOSTLY ANGUILLAN SPEAKING. PT HAS NO IV SITE AND DECLINE TO HAVE ONE AT THIS TIME. HAS NO C/O VOICED AT THIS TIME. FINGERSTICK IS 188, WILL GIVEN 2 UNITS OF COVERAGE. ALL UNIVERSAL FALLS PRECAUTIONS IN PLACE.
--- NOTE | 2020-03-21 20:24 | NUR ---
03/21/2020 RD INITIAL ASSESSMENT COMPLETED PLEASE REFER TO NUTRITION ASSESSMENT UNDER CARE ACTIVITY FOR ESTIMATED NUTRITIONAL NEEDS. ADVANCE DIET WHEN MEDICALL APPROPRIATE TO [address] TO FOLLOW-UP IN 2-3 DAYS PATIENT IS HIGH RISK. DELILAH LIU, RD
--- NOTE | 2020-03-21 21:00 | NUR ---
PT GIVEN 2 UNITS OF HUMALOG PER S/S. LAB CALLED PT DECLINED HIS BNP LAB DRAW.
[2020-03-22] VITALS: BP 138/74
--- NOTE | 2020-03-22 00:30 | NUR ---
SPOKE WITH OIL PIPE INSPECTOR HELPER MD NEIL REGARDING PT WISHES TO UPGRADE DIET TO CCHO-60, SAID OK TO HAVE CCHO-60 DIET. MD MADE AWARE PT REFUSAL FOR BNP BLOOD DRAW. ALSO SISTER CALLED AND WAS UPDATED ON PT CONDITION. ALL UNIVERSAL FALLS PRECAUTIONS IN PLACE.
--- NOTE | 2020-03-22 01:30 | NUR ---
PT SLEEPING, HE IS ON ROOM AIR. ALL UNIVERSAL FALLS PRECAUTIONS IN PLACE.
--- NOTE | 2020-03-22 03:00 | NUR ---
PT AWAKE AND ASKING FOR FOOD, PT GIVEN TUNA SANDWICH, PT CONTINUES TO DECLINE IV SITE. ALL UNIVERSAL FALLS PRECAUTIONS IN PLACE.
[2020-03-22 04:00] VITALS: BP 150/79
--- NOTE | 2020-03-22 06:00 | NUR ---
PT FINGERSTICK IS 372, PT GIVEN 10 UNITS OF HUMALOG PER S/S.ALL UNIVERSAL FALLS PRECAUTIONS IN PLACE.
[2020-03-22] MEDS: NACL 0.9% 1,000 ML IV SCH ×2 (06:22→16:22)
[2020-03-22] MEDS: INSULIN LISPRO SLIDING SCALE 100 UNITS/ML VIAL SUBQ PRN ×3 (07:06→16:45)
[2020-03-22] MEDS: BLOOD GLUCOSE MONITORING 1 DEV DEV FS SCH ×3 (07:08→16:33)
--- NOTE | 2020-03-22 07:20 | NUR ---
RECEIVED ENDORSEMENT FROM MANAGER PARTY RN PT IS STABLE RESTING IN BED. PER REPORT PT DOES NOT HAVE IV ACCESS DUE TO UPSET REGARDING CARE TO REFUSED DUE TO UPSET HE CAN NOT HAVE REGULAR FOOD.
[2020-03-22 08:00] VITALS: BP 114/72
--- NOTE | 2020-03-22 10:30 | NUR ---
PT REFUSED ASSESSMENT STATING HE IS UPSET HE CAN NOT HAVE FOOD. PT REPORTS HE HAD NOT BEEN ALLOWED TO EAT WANTS BREAD AND COOKIES. PT EDUCATED ON REASON FOR ADMISSION HOWEVER PT FOCUSED ON WANTING TO LEAVE. RECEIVED CALL FROM LAB STATING PT IS ALSO PCR COVID + PT EDUCATED. DR. FRAGA NOTIFIED.
[2020-03-22 12:00] VITALS: BP 132/82
[2020-03-22] MEDS ORDERED: LANTUS SUBQ (12:10)
[2020-03-22] MEDS ORDERED: NOVR SUBQ (12:11)
--- NOTE | 2020-03-22 12:30 | NUR ---
BS 225 4 UNITS OF COVERAGE GIVEN. LUNCH PROVIDED.
--- NOTE | 2020-03-22 14:47 | NUR ---
RESTING IN BED PT HAS D/C ORDER WILL START WORKING ON DC PAPERWORK
[2020-03-22 15:21] VITALS: BP 114/72
[2020-03-22 16:00] VITALS: BP 128/79
--- NOTE | 2020-03-22 16:25 | NUR ---
SPOKE WITH SISTER BRENDA REGARDING DISCHARGE INSTRUCTIONS PT AND SISTER VERBALIZED UNDERSTANDING BS 338 INSULIN COVERAGE PROVIDED
[2020-03-22 16:47] LABS: ANION GAP 11.1 (8-16); CREATININE 0.7 mg/dL (0.6-1.3); POTASSIUM 4.1 mmol/L (3.5-5.1)
--- NOTE | 2020-03-22 17:25 | NUR ---
PT DISCHARGED AT THIS TIME. PT IS DISCHARGED WITH ALL BELONGINGS INCLUDING CELL PHONE AND LIBRARY TECHNICAL ASSISTANT. DISCHARGE INSTRUCTIONS PAPERWORK GIVEN TO PATIENT AND FAMILY BOTH VERBALIZED UNDERSTANDING.
== END 2020-03-22 17:25 | disposition home or self-care (01) | DRG 177 ==
LOC: MED 17:24 → MTU 23:02 → MMU 03-20 07:56
PROVIDERS: ADMIT Family Medicine; ATTEND Family Medicine
DX: U07.1 COVID-19 (principal); E11.10 Type 2 diabetes mellitus with ketoacidosis without coma; N17.0 Acute kidney failure with tubular necrosis; E87.1 Hypo-osmolality and hyponatremia; E87.5 Hyperkalemia; E03.9 Hypothyroidism, unspecified; E78.5 Hyperlipidemia, unspecified; E11.22 Type 2 diabetes mellitus with diabetic chronic kidney disease; I12.9 Hypertensive chronic kidney disease with stage 1 through stage 4 chronic kidney disease, or unspecified chronic kidney disease; N18.9 Chronic kidney disease, unspecified; E87.6 Hypokalemia; Z79.4 Long term (current) use of insulin; Z79.899 Other long term (current) drug therapy; Z83.3 Family history of diabetes mellitus
CPT/HCPCS: 36415; 71046; 80048; 80053; 81003; 82009; 82150; 82948; 83036; 83690; 83735; 83880; 84100; 84439; 84443; 84484; 85025; 85610; 85730; 87040; 87081; 87086; 96361; 96374; 96375; 99291; A9153; G0482; J0610; J1815; J2405; J3411; J3475; J3480; J3490; J7030; J7060; J7120; U0003